=== PATIENT | male | born 1960 | race Caucasian/White ===

== ENCOUNTER 2023-03-01 04:41 | Emergency (ER) | payer MEDICAID, OTHER ==
[~2023-03-01] VITALS: Ht 182.9 cm; Wt 205.0 kg
[2023-03-01 07:33] VITALS: BP 138/90; PULSE 77; RESP 18; TEMP 98.3; O2SAT 98
[2023-03-01] MEDS ORDERED: IBUP-1455 PO (09:12)
[2023-03-01] MEDS ORDERED: ACET500T58 PO (09:12)
== END 2023-03-01 09:12 | disposition home or self-care (01) ==
LOC: ER 04:41
DX: M54.16 Radiculopathy, lumbar region (principal); M79.662 Pain in left lower leg
CPT/HCPCS: 72100; 93971

== ENCOUNTER 2023-03-13 14:32 | Emergency (ER) | payer OTHER ==
[~2023-03-13] VITALS: Ht 182.9 cm; Wt 91.8 kg
[~2023-03-13 14:32] MED LIST: ACET500T58 PO; IBUP-1455 PO
[2023-03-13 14:53] LABS: Basophils # (auto) 0.1 10 ^3/uL (0-0.2); Basophils % (auto) 0.7 % (0.0-2.0); Eosinophils # (auto) 0 10 ^3/uL (0-0.8); Eosinophils % (auto) 0.4 % (0.0-7.0); Hematocrit 47.9 % (41.0-53.0); Hemoglobin 16.9 g/dL (13.5-17.5); Lymphocytes # (auto) 0.6 10 ^3/uL (0.4-5.4); Lymphocytes % (auto) 7.3 % (10.0-50.0); Mean Corpuscular Hemoglobin 33.7 pg (28.0-32.0); Mean Corpuscular Hgb Conc. 35.2 g/dL (32.0-36.0); Mean Corpuscular Volume 95.5 fL (80.0-100.0); Monocytes # (auto) 0.8 10 ^3/uL (0-1.3); Monocytes % (auto) 9.4 % (0.0-12.0); Neutrophils # (auto) 6.8 10 ^3/uL (1.6-8.6); Neutrophils % (auto) 82.2 % (37.0-80.0); Nucleated Red Blood Cells % 0.2 %; Red Blood Cells 5.01 10^6/uL (4.5-5.90); Red Cell Distribution Width 13.1 % (11.8-14.3); White Blood Cell 8.2 10^3/uL (4.4-10.8)
[2023-03-13 15:07] LABS: Alanine Aminotransferase 33 U/L (7-40); Alkaline Phosphatase 90 U/L (46-116); Anion Gap 8 (5-15); Aspartate Aminotransferase 27 U/L (13-40); BUN/Creatinine Ratio 10.7 (10.0-20.0); Blood Urea Nitrogen 11 mg/dL (9-23); Calcium 9.5 mg/dL (8.5-10.1); Carbon Dioxide 27 mmol/L (20-30); Chloride 102 mmol/L (98-107); Glucose 108 mg/dL (74-106); Potassium 3.3 mmol/L (3.5-5.1); Sodium 137 mmol/L (136-145)
[2023-03-13 15:08] LABS: Albumin 4.6 g/dL (3.2-4.8); Bilirubin, Total 1.1 mg/dL (0.2-1.0)
[2023-03-13 15:09] LABS: Total Protein 6.3 g/dL (5.7-8.2)
[2023-03-13 15:28] LABS: Urine Bacteria NONE SEEN /hpf (None Seen); Urine Blood Negative /uL (Negative); Urine Clarity Clear (Clear); Urine Color Yellow (Yellow); Urine Mucus FEW (None Seen); Urine Protein, UAD Negative (Negative); Urine Specific Gravity 1.015 (1.001-1.035); Urine Urobilinogen Normal (Negative); Urine WBC 4 /hpf (0 - 3)
[2023-03-13 16:26] LABS: Rapid Influenza A Negative (Negative); Rapid Influenza B Negative (Negative)
[2023-03-13 16:27] LABS: COVID19 ANTIGEN SOFIA FIA NEGATIVE (NEGATIVE)
[2023-03-13] MEDS ORDERED: AZIT1POW PO (17:02)
[2023-03-13 17:13] VITALS: BP 143/78; PULSE 100; RESP 18; TEMP 99.4; O2SAT 97
== END 2023-03-13 17:15 | disposition home or self-care (01) ==
LOC: ER 14:32
DX: J20.9 Acute bronchitis, unspecified (principal); I10 Essential (primary) hypertension; Z20.822 Contact with and (suspected) exposure to COVID-19
CPT/HCPCS: 36415; 71045; 80053; 81001; 83605; 84484; 85025; 87040; 87426; 87804; 93005

== ENCOUNTER 2025-01-31 12:07 | Inpatient (IN) | payer OTHER ==
[~2025-01-31] VITALS: Ht 182.9 cm; Wt 97.3 kg
[~2025-01-31 12:07] MED LIST changes: +AZIT1POW PO
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
[2025-01-31] MEDS: fentaNYL CITRATE 100 MCG/2 ML VL IV ONE (13:11)
--- NOTE | 2025-01-31 13:16 | DVH ---
EXAM: CT CT AB PEL WO CON-NO ORAL OR IV INDICATION: R HIP PAIN, FALL TECHNIQUE: Volumetric multidetector CT images of the abdomen and pelvis were obtained without contras t. All CT scans at this facility use dose modulation, iterative reconstruction, and/or weight based d osing when appropriate to reduce radiation dose to as low as reasonably achievable. COMPARISON: None FINDINGS: [LOWER CHEST]: The partially visualized lung bases are clear without a pleural effusion. The cardiac size is normal without pericardial effusion. [LIVER]: Normal hepatic size without suspicious focal lesion. [GALLBLADDER AND BILIARY TREE]: No cholelithiasis. [SPLEEN]: Unremarkable. [PANCREAS]: Unremarkable. [ADRENAL GLANDS]: Unremarkable [KIDNEYS]: Moderate left hydronephrosis secondary to left junction stone measuring 1.6 cm [BLADDER]: Unremarkable for the degree distention. [REPRODUCTIVE ORGANS]: Unremarkable. [BOWEL/MESENTERY]: Stomach is normal. No CT evidence of bowel obstruction. [ASCITES]: Absent [LYMPHADENOPATHY]: No pathologically enlarged lymph nodes by CT size criteria [VASCULATURE]: No aneurysmal dilatation. [ABDOMINAL WALL]: Unremarkable. [MUSCULOSKELETAL]: Basicervical right femoral with significant displacement/ angulation. Anterior ap ex angulation of the fracture Multifocal degenerative change of the visualized spine. IMPRESSION: 1. Basicervical right femoral fracture with significant displacement/ angulation. 2. Moderate left hydronephrosis secondary to left ureterovesicular junction stone measuring 1.6 cm.
[2025-01-31 13:17] LABS: Hematocrit 45.5 % (41.0-53.0); Hemoglobin 16.5 g/dL (13.5-17.5); Mean Corpuscular Hemoglobin 34.9 pg (28.0-32.0); Mean Corpuscular Volume 96.0 fL (80.0-100.0); Nucleated Red Blood Cells % 0.2 %
[2025-01-31 13:30] LABS: Alanine Aminotransferase 40 U/L (7-40); Albumin 4.4 g/dL (3.2-4.8); Alkaline Phosphatase 65 U/L (46-116); Anion Gap 9 (5-15); BUN/Creatinine Ratio 11.0 (10.0-20.0); Bilirubin, Total 0.8 mg/dL (0.2-1.0); Blood Urea Nitrogen 14 mg/dL (9-23); Calcium 9.6 mg/dL (8.7-10.4); Carbon Dioxide 30 mmol/L (20-31); Chloride 101 mmol/L (98-107); Glucose 136 mg/dL (74-106); Magnesium 1.8 mg/dL (1.6-2.6); Potassium 3.1 mmol/L (3.5-5.1); Sodium 140 mmol/L (136-145); Total Protein 6.5 g/dL (5.7-8.2)
[2025-01-31] MEDS ORDERED: fentaNYL CITRATE 100 MCG/2 ML VL IV ONE (14:15)
[2025-01-31] MEDS: HYDROmorphone HCL 2 MG/ML VL/or syr IV ONE (14:40)
[2025-01-31] MEDS: TAMSULOSIN HYDROCHLORIDE 0.4 MG CAP PO ONE (15:02)
[2025-01-31 16:44] VITALS: PULSE 72; RESP 18; O2SAT 96
[2025-01-31 18:15] LABS: Urine Amorphous Crystal FEW /hpf (None Seen); Urine Protein, UAD Negative (Negative)
[2025-01-31] MEDS ORDERED: ACETAMINOPHEN 325 MG TAB PO PRN (19:15)
[2025-01-31] MEDS ORDERED: ONDANSETRON HCL 4 MG/2 ML VIAL IV PRN (19:15)
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
[2025-01-31 19:59] LABS: INR 1.03 (0.9-1.15); Partial Thromboplastin Time 25.6 SEC (24.5-34.5); Prothrombin Time 10.9 sec (9.3-11.8)
[2025-01-31] MEDS: HYDROmorphone HCL 2 MG/ML VL/or syr IV PRN (20:02)
[2025-01-31] MEDS: HYDROcodone-ACET 5/325MG TAB PO PRN (20:51)
[2025-01-31] MEDS: POTASSIUM CHL 20 Meq TABLET PO ONE (22:50)
[2025-01-31 23:20] VITALS: BP 154/59; PULSE 68; RESP 18; TEMP 98.8; O2SAT 98
[2025-01-31 23:39] VITALS: BP 154/59; PULSE 68; RESP 18; TEMP 98.8; O2SAT 98
[2025-01-31] MEDS: TEMAZEPAM 15 MG CAP PO PRN (23:46)
[2025-02-01] MEDS ORDERED: HYDR25TA4 PO (00:18)
[2025-02-01] MEDS ORDERED: LOSA-534 PO (00:19)
[2025-02-01 01:00] VITALS: BP 150/95; PULSE 87; RESP 18; TEMP 98.8; O2SAT 97
[2025-02-01 05:00] VITALS: BP 152/88; PULSE 82; RESP 18; TEMP 98.3; O2SAT 96
[2025-02-01 06:36] LABS: Hematocrit 43.2 % (41.0-53.0); Hemoglobin 15.7 g/dL (13.5-17.5); Mean Corpuscular Hemoglobin 34.8 pg (28.0-32.0); Mean Corpuscular Volume 95.7 fL (80.0-100.0); Nucleated Red Blood Cells % 0.0 %
[2025-02-01 06:49] LABS: Chloride 102 mmol/L (98-107); Sodium 141 mmol/L (136-145)
[2025-02-01 06:50] LABS: Anion Gap 11 (5-15); Calcium 9.0 mg/dL (8.7-10.4); Carbon Dioxide 28 mmol/L (20-31)
[2025-02-01 06:53] LABS: Potassium 3.1 mmol/L (3.5-5.1)
[2025-02-01 06:55] LABS: BUN/Creatinine Ratio 13.0 (10.0-20.0); Blood Urea Nitrogen 14 mg/dL (9-23)
[2025-02-01 07:02] LABS: Glucose 111 mg/dL (74-106)
[2025-02-01 09:00] VITALS: BP 137/80; PULSE 75; RESP 18; TEMP 98.2; O2SAT 97
--- NOTE | 2025-02-01 09:54 | DVHINCON2 ---
Date of service: Feb 01, 2025 Referring Physician Hospitalist Reason for Consultation left UPJ stone with moderate hydro History of Present Illness History Source: Patient, RN Notes Exam Limitations: No limitations HPI 64 yo male admitted for right femur fracture after mechanical fall. Incidental findings of left UPJ stone 1.6cm in the UPJ with moderate hydro. No UTI, preserved renal function Home Meds Active Scripts Ibuprofen Micronized (Ibuprofen) 800 Mg Tab, 800 MG PO Q8HP PRN, #30 TAB Prov:MARLO BUCKLEY Karin PAC 03/01/23 Acetaminophen (Acetaminophen) 500 Mg Tab, 500 MG PO Q4HP PRN, #30 TAB Prov:INAMARLO RAO PAC 03/01/23 Reported Medications Losartan Potassium (Losartan Potassium) 50 Mg Tab, 1 TAB PO DAILY, #30 TAB 5 Refills 02/01/25 Hydrochlorothiazide (Hydrochlorothiazide) 25 Mg Tab, 1 TAB PO DAILY, #30 TAB 5 Refills 02/01/25 Past Medical History Patient Family History: Alzheimer's disease G8 FATHER FH: cancer G8 BROTHER FH: dementia G8 FATHER G8 BROTHER FH: stroke G8 MOTHER H&P Exam Vital Signs Vital Signs Date Time Temp Pulse Resp B/P (MAP) Pulse Ox O2 Delivery O2 Flow Rate FiO2 02/01/25 09:00 98.2 75 18 137/80 (99) 97 98.2 02/01/25 08:29 Room Air* 0 21 Labs/Xrays [place] [id number] Ph: [phone] DIAGNOSTIC IMAGING Diagnostic Imaging Report : [id number] Signed PATIENT: DERRICK FLORENTINO ACCT: [id number] UNIT: [id number] : 1960 LOC: ER ROOM / BED: / AGE / SEX: 64 / M ADM STATUS: REG ER SERVICE 1209 ORDERING PHYSICIAN: BENJY MCCLURE DO PROCEDURE(s): ABPL - CT AB PEL WO CON-NO ORAL OR IV REASON: R HIP PAIN, FALL ORDER NUMBER(s): [id number], ACCESSION NUMBER(s): [id number] EXAM: CT CT AB PEL WO CON-NO ORAL OR IV INDICATION: R HIP PAIN, FALL TECHNIQUE: Volumetric multidetector CT images of the abdomen and pelvis were obtained without contrast. All CT scans at this facility use dose modulation, iterative reconstruction, and/or weight based dosing when appropriate to reduce radiation dose to as low as reasonably achievable. COMPARISON: None FINDINGS: [LOWER CHEST]: The partially visualized lung bases are clear without a pleural effusion. The cardiac size is normal without pericardial effusion. [LIVER]: Normal hepatic size without suspicious focal lesion. [GALLBLADDER AND BILIARY TREE]: No cholelithiasis. [SPLEEN]: Unremarkable. [PANCREAS]: Unremarkable. [ADRENAL GLANDS]: Unremarkable [KIDNEYS]: Moderate left hydronephrosis secondary to left junction stone measuring 1.6 cm [BLADDER]: Unremarkable for the degree distention. [REPRODUCTIVE ORGANS]: Unremarkable. [BOWEL/MESENTERY]: Stomach is normal. No CT evidence of bowel obstruction. [ASCITES]: Absent [LYMPHADENOPATHY]: No pathologically enlarged lymph nodes by CT size criteria [VASCULATURE]: No aneurysmal dilatation. [ABDOMINAL WALL]: Unremarkable. [MUSCULOSKELETAL]: Basicervical right femoral with significant displacement/ angulation. Anterior apex angulation of the fracture Multifocal degenerative change of the visualized spine. IMPRESSION: 1. Basicervical right femoral fracture with significant displacement/ angulation. 2. Moderate left hydronephrosis secondary to left ureterovesicular junction stone measuring 1.6 cm. ATED BY: QUINN ROJAS MD DICTATED DATE/TIME: 01/31/251313 SIGNED BY: QUINN ROJAS MD SIGNED DATE/TIME: 01/31/25 1314 CC: Labs Test 02/01/25 06:07 01/31/25 19:30 01/31/25 17:08 01/31/25 13:03 Range/Units White Blood Count 11.6 H 4.4-10.8 10^3/uL Red Blood Count 4.51 4.5-5.90 10^6/uL Hemoglobin 15.7 13.5-17.5 g/dL Hematocrit 43.2 41.0-53.0 % Mean Corpuscular Volume 95.7 80.0-100.0 fL Mean Corpuscular Hemoglobin 34.8 H 28.0-32.0 pg Mean Corpuscular Hemoglobin Concent 36.4 H 32.0-36.0 g/dL Red Cell Distribution Width 13.3 11.8-14.3 % Platelet Count 158 140-450 10^3/uL Mean Platelet Volume 7.6 6.9-10.8 fL Neutrophils (%) (Auto) 80.7 H 37.0-80.0 % Lymphocytes (%) (Auto) 11.2 10.0-50.0 % Monocytes (%) (Auto) 7.2 0.0-12.0 % Eosinophils (%) (Auto) 0.4 0.0-7.0 % Basophils (%) (Auto) 0.5 0.0-2.0 % Neutrophils # (Auto) 9.4 H 1.6-8.6 10 ^3/uL Lymphocytes # (Auto) 1.3 0.4-5.4 10 ^3/uL Monocytes # (Auto) 0.8 0-1.3 10 ^3/uL Eosinophils # (Auto) 0 0-0.8 10 ^3/uL Basophils # (Auto) 0.1 0-0.2 10 ^3/uL Nucleated Red Blood Cells 0.0 % Sodium Level 141 136-145 mmol/L Potassium Level 3.1 L 3.5-5.1 mmol/L Chloride Level 102 98-107 mmol/L Carbon Dioxide Level 28 20-31 mmol/L Anion Gap 11 5-15 Blood Urea Nitrogen 14 9-23 mg/dL Creatinine 1.08 0.700-1.30 mg/dL Glomerular Filtration Rate Calc 76 >90 mL/min BUN/Creatinine Ratio 13.0 10.0-20.0 Serum Glucose 111 H 74-106 mg/dL Calcium Level 9.0 8.7-10.4 mg/dL Prothrombin Time 10.9 9.3-11.8 sec Prothrombin Time INR 1.03 0.9-1.15 Activated Partial Thromboplast Time 25.6 24.5-34.5 SEC Urine Color Light-yellow Yellow Urine Clarity Clear Clear Urine pH 5.5 5.0-9.0 Urine Specific [place] 1.016 1.001-1.035 Urine Protein Negative Negative Urine Ketones Negative Negative Urine Blood Negative Negative /uL Urine Nitrite Negative Negative Urine Bilirubin Negative Negative Urine Urobilinogen Normal Negative mg/dL Urine Leukocyte Esterase 1+ Negative /uL Urine RBC <1 0 - 3 /hpf Urine Microscopic WBC 11 H 0-3 /HPF Urine Squamous Epithelial Cells Few <5 /hpf Urine Amorphous Crystals Few None Seen /hpf Urine Bacteria None seen None Seen /hpf Urine Glucose Normal Normal mg/dL Magnesium Level 1.8 1.6-2.6 mg/dL Total Bilirubin 0.8 0.2-1.0 mg/dL Aspartate Amino Transferase (AST) 36 13-40 U/L Alanine Aminotransferase (ALT) 40 7-40 U/L Alkaline Phosphatase 65 46-116 U/L Troponin I High Sensitivity 4 </=54 ng/L Total Protein 6.5 5.7-8.2 g/dL Albumin 4.4 3.2-4.8 g/dL Plasma/Serum Blood Alcohol < 3.0 <10 mg/dL Assessment/Plan Problem List: (1) Lumbar radiculopathy (2) Acute bronchitis (3) Hydronephrosis, left (4) Left ureteral calculus (5) Closed right hip fracture Plan US for ureteral jetting if not present proceed with PCN Plan discussed with: Patient, Other MAHIN MENJIVAR NP Feb 01, 2025 09:54
--- NOTE | 2025-02-01 10:47 | DVH ---
INDICATION: ureteral jets TECHNIQUE: Multiple real-time sonographic images of the kidneys and bladder were obtained. COMPARISON: None FINDINGS: The right kidney measures 12 cm in length, which is normal in size. There is normal echogen icity of the right kidney. No hydronephrosis. The left kidney measures 14 cm in length, which is normal in size. Moderate left hydronephrosis with multiple stones are noted. No large intraluminal masses are seen in the bladder. IMPRESSION: Moderate left hydronephrosis with multiple stones are noted.
--- NOTE | 2025-02-01 11:32 | DVH ---
right HIP RADIOGRAPH. CLINICAL INDICATION: S/P FALL TECHNIQUE: 3 views of the right hip were obtained. FINDINGS: Displaced right femoral neck fracture. IMPRESSION: 1. Displaced right femoral neck fracture.
--- NOTE | 2025-02-01 12:29 | DVHPN2 ---
Subjective Patient complaining right hip pain Reviewed: Care Plan, H&P, Labs, Medications, Previous Orders Changes from previous H/P or p: No Changes General: Per HPI Objective Vitals Vital Signs Date Time Temp Pulse Resp B/P (MAP) Pulse Ox O2 Delivery O2 Flow Rate FiO2 02/01/25 09:20 75 19 141/75 02/01/25 09:00 98.2 97 98.2 02/01/25 08:29 Room Air* 0 21 Intake/Output Intake and Output 02/01/25 07:00 Intake Total 500 ml Output Total 300 ml Balance 200 ml Intake Oral 400 ml IV Total 100 ml Output Urine Total 300 ml General Appearance: Alert, Oriented X3, Cooperative, moderate distress HEENT: Atraumatic, PERRLA Lungs: Clear to auscultation, Normal air movement Cardiovascular: Normal S1, Normal S2 Abdomen: Normal bowel sounds, Soft, No tenderness Genitourinary: No Apparent Abnormalities Musculoskeletal: Normal sensory function, Normal motor function Neuro: Normal gait, Normal speech Skin: Dry, Intact Psych/Mental Status: Mental status NL, Mood NL Medications Current Medications Medications Dose Ordered Sig/Shanon Route Start Time Stop Time Status Last Admin Dose Admin Hydromorphone HCl 0.5 mg Q4HPRN PRN IV 01/31/25 19:15 02/01/25 08:50 0.5 MG Temazepam 15 mg HSPRN PRN PO 01/31/25 19:15 01/31/25 23:46 15 MG Acetaminophen/ Hydrocodone Bitart 1 tab Q4HP PRN PO 01/31/25 19:15 02/01/25 10:35 1 TAB Ondansetron HCl 4 mg Q4HP PRN IV 01/31/25 19:15 Acetaminophen 650 mg Q6HP PRN PO 01/31/25 19:15 Ceftriaxone Sodium 50 ml @ 100 mls/hr DAILY@09 IV 02/01/25 09:00 02/01/25 09:25 100 MLS/HR Laboratory Results Laboratory Tests 02/01/25 06:07 Chemistry Test 01/31/25 13:03 02/01/25 06:07 Albumin 4.4 g/dL (3.2-4.8) Calcium Level 9.6 mg/dL (8.7-10.4) 9.0 mg/dL (8.7-10.4) Magnesium Level 1.8 mg/dL (1.6-2.6) Total Protein 6.5 g/dL (5.7-8.2) Coagulation Test 01/31/25 19:30 Prothrombin Time 10.9 sec (9.3-11.8) Prothrombin Time INR 1.03 (0.9-1.15) Activated Partial Thromboplast Time 25.6 SEC (24.5-34.5) LFT Test 01/31/25 13:03 Alanine Aminotransferase (ALT) 40 U/L (7-40) Alkaline Phosphatase 65 U/L (46-116) Aspartate Amino Transferase (AST) 36 U/L (13-40) Total Bilirubin 0.8 mg/dL (0.2-1.0) Urinalysis Test 01/31/25 17:08 Urine Color Light-yellow (Yellow) Urine Clarity Clear (Clear) Urine pH 5.5 (5.0-9.0) Urine Specific [place] 1.016 (1.001-1.035) Urine Protein Negative (Negative) Urine Ketones Negative (Negative) Urine Blood Negative /uL (Negative) Urine Nitrite Negative (Negative) Urine Bilirubin Negative (Negative) Urine Urobilinogen Normal mg/dL (Negative) Urine Leukocyte Esterase 1+ /uL (Negative) Urine RBC <1 /hpf (0 - 3) Urine Microscopic WBC 11 /HPF (0-3) H Urine Squamous Epithelial Cells Few /hpf (<5) Urine Amorphous Crystals Few /hpf (None Seen) Urine Bacteria None seen /hpf (None Seen) Urine Glucose Normal mg/dL (Normal) Labs and/or images reviewed: Labs reviewed by me, Image(s) reviewed by me Assessment/Plan Assessment/Plan Impression: -right femoral neck fracture -obstructive uropathy secondary to nephrolithiasis -left hydroureter nephrosis -primary hypertension -hypokalemia Plan: -preop diagnostic testing -ortho consultation -urology consultation -pain management -PUD, DVT prophylaxis -potassium replacement -IV hydration Total time spent with patient discussing and formulating plan of care: 35 minutes. This medical document was created using an electronic medical record system with [employer] system. Although this document has been carefully reviewed, there may still be some phonetic and typographical errors. These areas are purely typographical due to imperfections of the software programs, and do not reflect any compromise in the patient's medical care. Plan discussed with: Patient, Other (RN) My Orders Orders - CHERYLE HINES NP Procedure Category Date Status Time Sod Chl 0.9%/ Kcl PHA 02/01/25 In Process 40meq 12:00 Chest Xray 1 View XY 02/01/25 Logged 11:57 Electrocardigram EKG 02/01/25 Logged 11:57 Date of Service: Feb 01, 2025 Billing Provider: CHERYLE HINES NP Common Visit Codes: [id number] INP/OBS CARE(HIGH) CHERYLE HINES NP Feb 01, 2025 12:29
[2025-02-01] MEDS: SOD CHL 0.9%/ KCL 40MEQ 1,000 ML IV ONE (12:56)
[2025-02-01 13:00] VITALS: BP 135/98; PULSE 74; RESP 18; TEMP 98; O2SAT 93
--- NOTE | 2025-02-01 13:20 | DVH ---
CHEST RADIOGRAPH Indication: pre op Technique: Single frontal view of the chest was obtained Comparison: XY CHEST PORTABLE on DOS: 03/13/23 FINDINGS: Lines and Tubes: None Lungs: No focal consolidation. Pleura: No effusion. No pneumothorax. Cardiomediastinal contours: Unremarkable Bones: No acute osseous abnormality. IMPRESSION: No acute cardiopulmonary disease.
[2025-02-01 17:00] VITALS: BP 143/78; PULSE 86; RESP 18; TEMP 97.9; O2SAT 96
[2025-02-01 21:00] VITALS: BP 154/81; PULSE 82; RESP 18; TEMP 100.2; O2SAT 90
[2025-02-02] VITALS (7 sets, daily range): BP systolic 134–152; BP diastolic 79–94; PULSE 80–95; RESP 18–20; TEMP 98.2–99.9; O2SAT 90–94
[2025-02-02] MEDS: PANTOPRAZOLE 40 MG TAB PO SCH (05:49)
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
[2025-02-02] MEDS: ENOXAPARIN SOD 40 MG/0.4 ML SYRINGE SC SCH (09:09)
[2025-02-02 12:06] LABS: Chloride 103 mmol/L (98-107); Potassium 3.5 mmol/L (3.5-5.1); Sodium 141 mmol/L (136-145)
[2025-02-02 12:07] LABS: Anion Gap 9 (5-15); Carbon Dioxide 29 mmol/L (20-31)
[2025-02-02 12:12] LABS: Glucose 95 mg/dL (74-106)
[2025-02-02 12:13] LABS: BUN/Creatinine Ratio 12.7 (10.0-20.0); Blood Urea Nitrogen 13 mg/dL (9-23); Calcium 8.6 mg/dL (8.7-10.4); Magnesium 1.8 mg/dL (1.6-2.6)
--- NOTE | 2025-02-02 12:58 | DVHPN2 ---
Subjective Patient complaining right hip pain Reviewed: Care Plan, H&P, Labs, Medications, Previous Orders Changes from previous H/P or p: No Changes General: Per HPI Objective Vitals Vital Signs Date Time Temp Pulse Resp B/P (MAP) Pulse Ox O2 Delivery O2 Flow Rate FiO2 02/02/25 12:41 98.7 86 19 148/92 (110) 90 98.7 02/01/25 20:00 Room Air* 0 21 Intake/Output Intake and Output 02/02/25 06:59 Intake Total 3300 ml Output Total 1450 ml Balance 1850 ml Intake Oral 2250 ml IV Total 1050 ml Output Urine Total 1450 ml General Appearance: Alert, Oriented X3, Cooperative, moderate distress HEENT: Atraumatic, PERRLA Lungs: Clear to auscultation, Normal air movement Cardiovascular: Normal S1, Normal S2 Abdomen: Normal bowel sounds, Soft, No tenderness Genitourinary: No Apparent Abnormalities Musculoskeletal: Normal sensory function, Normal motor function Neuro: Normal gait, Normal speech Skin: Dry, Intact Psych/Mental Status: Mental status NL, Mood NL Medications Current Medications Medications Dose Ordered Sig/Shanon Route Start Time Stop Time Status Last Admin Dose Admin Hydromorphone HCl 0.5 mg Q4HPRN PRN IV 01/31/25 19:15 02/02/25 11:43 0.5 MG Temazepam 15 mg HSPRN PRN PO 01/31/25 19:15 02/01/25 22:10 15 MG Acetaminophen/ Hydrocodone Bitart 1 tab Q4HP PRN PO 01/31/25 19:15 02/02/25 08:47 1 TAB Ondansetron HCl 4 mg Q4HP PRN IV 01/31/25 19:15 Acetaminophen 650 mg Q6HP PRN PO 01/31/25 19:15 Ceftriaxone Sodium 50 ml @ 100 mls/hr DAILY@09 IV 02/01/25 09:00 02/02/25 09:02 100 MLS/HR Pantoprazole Sodium 40 mg DAILY@0600 PO 02/02/25 06:00 02/02/25 05:49 40 MG Enoxaparin Sodium 40 mg DAILY SC 02/02/25 10:00 02/02/25 09:09 40 MG Thiamine HCl 100 mg DAILY PO 02/03/25 10:00 UNV Potassium Chloride/Sodium Chloride 1,000 ml @ 75 mls/hr [id number] IV 02/02/25 22:00 UNV Losartan Potassium 50 mg DAILY PO 02/03/25 10:00 UNV Laboratory Results Laboratory Tests 02/01/25 06:07 02/02/25 11:31 Chemistry Test 02/02/25 11:31 Calcium Level 8.6 mg/dL (8.7-10.4) L Magnesium Level 1.8 mg/dL (1.6-2.6) Urinalysis Test 01/31/25 17:08 Urine Color Light-yellow (Yellow) Urine Clarity Clear (Clear) Urine pH 5.5 (5.0-9.0) Urine Specific [place] 1.016 (1.001-1.035) Urine Protein Negative (Negative) Urine Ketones Negative (Negative) Urine Blood Negative /uL (Negative) Urine Nitrite Negative (Negative) Urine Bilirubin Negative (Negative) Urine Urobilinogen Normal mg/dL (Negative) Urine Leukocyte Esterase 1+ /uL (Negative) Urine RBC <1 /hpf (0 - 3) Urine Microscopic WBC 11 /HPF (0-3) H Urine Squamous Epithelial Cells Few /hpf (<5) Urine Amorphous Crystals Few /hpf (None Seen) Urine Bacteria None seen /hpf (None Seen) Urine Glucose Normal mg/dL (Normal) Labs and/or images reviewed: Labs reviewed by me, Image(s) reviewed by me Assessment/Plan Assessment/Plan Impression: -right femoral neck fracture -obstructive uropathy secondary to nephrolithiasis -left hydroureter nephrosis -primary hypertension -hypokalemia Plan: Events: Plans for total right placement tomorrow. -start Flomax -renal function stable. Repeat renal ultrasound to assess hydronephrosis for possible nephrostomy tube placement -ortho consultation -urology consultation -pain management -PUD, DVT prophylaxis Total time spent with patient discussing and formulating plan of care: 35 minutes. This medical document was created using an electronic medical record system with [employer] system. Although this document has been carefully reviewed, there may still be some phonetic and typographical errors. These areas are purely typographical due to imperfections of the software programs, and do not reflect any compromise in the patient's medical care. Plan discussed with: Patient, Other (RN) My Orders Orders - CHERYLE HINES [employer] Procedure Category Date Status Time Apply Z-Guard [facility] 02/01/25 In Process 11:40 Thiamine Tab PHA 02/03/25 Logged 10:00 Tamsulosin PHA 02/02/25 Logged Hydrochloride (Flomax) 13:00 Sod Chl 0.9%/ Kcl PHA 02/02/25 Logged 20meq 22:00 Losartan Tablet PHA 02/03/25 Logged (Cozaar Tablet) 10:00 Hydrochlorothiazide PHA 02/03/25 Logged Tablet (Hydrochlorot 10:00 Date of Service: Feb 02, 2025 Billing Provider: CHERYLE HINES [employer] Common Visit Codes: [id number] INP/OBS CARE(HIGH) CHERYLE HINES NP Feb 02, 2025 12:58
[2025-02-02] MEDS: TAMSULOSIN HYDROCHLORIDE 0.4 MG CAP PO ONE (14:00)
[2025-02-02] MEDS: TAMSULOSIN HYDROCHLORIDE 0.4 MG CAP PO SCH (18:05)
[2025-02-02] MEDS: SOD CHL 0.9%/ KCL 20MEQ 1,000 ML IV SCH (21:05)
[2025-02-03] VITALS (21 sets, daily range): BP systolic 94–152; BP diastolic 56–100; PULSE 56–100; RESP 13–19; TEMP 97.5–99.9; O2SAT 92–96
[2025-02-03] MEDS: VANCOMYCIN HCL 1000 MG VL ONE (07:10)
[2025-02-03] MEDS: TRANEXAMIC ACID 20 ML ONE (07:11)
[2025-02-03] MEDS: CEFEPIME 1GM/50ML 50 ML IV ONE (07:12)
[2025-02-03] MEDS: BUPIVACAINE 0.25% INJ 50ML VIAL ONE (07:12)
--- NOTE | 2025-02-03 09:15 | DVHPN2 ---
Progress Note Date Seen: Feb 02, 2025 Medical Necessity Reason Pt with a Central, PICC or Fol: No Subjective Patient reports: No new complaints, Other (Ready to proceed with surgery) Objective vital signs Vital Sign Date Time Temp Pulse Resp B/P (MAP) Pulse Ox O2 Delivery O2 Flow Rate FiO2 02/03/25 08:44 98.1 83 19 152/92 (112) 92 98.1 02/02/25 20:00 Room Air* 0 21 Total Intake and Output 02/02/25 02/02/25 02/03/25 15:00 23:00 07:00 Intake Total 50 ml 760 ml 600 ml Output Total 900 ml 525 ml Balance 50 ml -140 ml 75 ml medications Current Medications Medications Dose Ordered Sig/Shanon Route Start Time Stop Time Status Last Admin Dose Admin Hydromorphone HCl 0.5 mg Q4HPRN PRN IV 01/31/25 19:15 02/02/25 20:57 0.5 MG Temazepam 15 mg HSPRN PRN PO 01/31/25 19:15 02/01/25 22:10 15 MG Acetaminophen/ Hydrocodone Bitart 1 tab Q4HP PRN PO 01/31/25 19:15 02/03/25 06:22 1 TAB Ondansetron HCl 4 mg Q4HP PRN IV 01/31/25 19:15 Acetaminophen 650 mg Q6HP PRN PO 01/31/25 19:15 Ceftriaxone Sodium 50 ml @ 100 mls/hr DAILY@09 IV 02/01/25 09:00 02/02/25 09:02 100 MLS/HR Pantoprazole Sodium 40 mg DAILY@0600 PO 02/02/25 06:00 02/03/25 06:22 40 MG Enoxaparin Sodium 40 mg DAILY SC 02/02/25 10:00 02/02/25 09:09 40 MG Thiamine HCl 100 mg DAILY PO 02/03/25 10:00 Potassium Chloride/Sodium Chloride 1,000 ml @ 75 mls/hr [id number] IV 02/02/25 22:00 02/02/25 21:05 75 MLS/HR Losartan Potassium 50 mg DAILY PO 02/03/25 10:00 Hydrochlorothiazide 25 mg DAILY PO 02/03/25 10:00 Tamsulosin HCl 0.4 mg QPM PO 02/02/25 18:00 02/02/25 18:05 0.4 MG laboratory and microbiology Laboratory Tests 02/02/25 11:31 02/01/25 06:07 Test 02/02/25 11:31 Range/Units Serum Glucose 95 74-106 mg/dL Problem List/Assessment/Plan Problem List/Assessment/Plan 64 yo M sp fall with displaced right femoral neck fracture 1. Plan for right total hip arthroplasty on 02/03/25 2. NPO/IVF 3. pain control I had a long discussion with the patient regarding the plan, the expected outcome, the risks, benefits, and alternatives of surgery. The risks include, but are not limited to, infection (which may require future surgery and removal of implants) , bleeding (which may require a transfusion), damage to nerves, arteries, veins, tendons, muscles and other adjacent structures. Also discussed the possibilities of dislocation, leg-length discrepancy, intraoperative fractures, implant loosening, heterotopic bone formation, and revision for variety of reasons, and medical complications etc. This was discussed at length and consent has been obtained. Plan discussed with: Patient Dietary Evaluation Review Comments: 1) Initiate MVI @ 1 tb qd 2) Advance to cardiac diet when medically feasible 3) Refer to outpatient RD for weight management 4) Follow-up with orthopedic surgeon and PT 5) Continue to monitor I&O, labs, and skin integrity Expected Outcomes/Goals: 1) labs to improve 2) diet to advance 3) gradual wt loss 4) f/u in 3-5 days SOPHIA COVARRBUIAS MD Feb 03, 2025 09:15
[2025-02-03] MEDS: TETRACAINE 1% INJ 2 ML VIAL IJ ONE (09:20)
[2025-02-03] MEDS ORDERED: fentaNYL CITRATE 100 MCG/2 ML VL ONE (09:23)
[2025-02-03] MEDS ORDERED: MIDAZOLAM HCL 2MG/2ML 2ml VIAL (1mg/ml) ONE ×2 (09:23→09:39)
[2025-02-03] MEDS ORDERED: PROPOFOL 10 MG/ML 20 ML IV ONE (09:31)
--- NOTE | 2025-02-03 09:50 | ECG ---
[facility] Test Date: 2025-02-01 Test Time: 15:43:57 Pat Name: DERRICK FLORENTINO Department: Room: 0286 A Gender: M Library Services Coordinator: MARKUS WILLSON RN : 1960 Requested By: CHERYLE HINES Order Number: [id number] Reading MD: Deniz Byrne Measurements Intervals [place] Rate: 79 P: 33 MI: 142 QRS: 40 QRSD: 88 T: -29 QT: 366 QTc: 420 Interpretive Statements Sinus rhythm Abnormal R-wave progression, early transition Borderline repolarization abnormality Electronically Signed On 02-04-2025 15:29:04 PDT by Deniz Byrne Please click the below link to view image of tracing.
[2025-02-03] MEDS: LOSARTAN POTASSIUM 50 MG TAB PO SCH ×2 (10:00→16:31)
[2025-02-03] MEDS: hydroCHLOROthiazide 25 MG TAB PO SCH ×2 (10:00→16:31)
[2025-02-03] MEDS: THIAMINE HCL 100 MG TAB PO SCH (10:00)
[2025-02-03] MEDS: MORPHINE SULF PF 5 MG/10 ML VIAL ONE (10:10)
[2025-02-03] MEDS: KETOROLAC TROMETH 30 MG/ML 1ML VIAL ONE (10:10)
[2025-02-03] MEDS ORDERED: HYDROmorphone HCL 2 MG/ML VL/or syr IV PRN (11:00)
[2025-02-03] MEDS ORDERED: MIDAZOLAM HCL 2MG/2ML 2ml VIAL (1mg/ml) IV PRN (11:00)
[2025-02-03] MEDS ORDERED: hydrALAZINE HCL 20 MG/ML VL IV PRN (11:00)
[2025-02-03] MEDS ORDERED: diphenhydrAMINE HCL 50 MG/1 ML VL IV PRN (11:00)
--- NOTE | 2025-02-03 11:12 | DVHOP2 ---
Operative Report - 2 Report Details Date: 02/03/25 Preop Diagnosis: Right displaced femoral neck fracture Postop Diagnosis: as above Surgeon: Alfonso Tellez MD Anesthesiologist: Mali GALLEGO Anesthesia: Regional Implant: [employer] Size 58 R3 cup 35 mm screw x 2 Dual mobility 58/40+4 femoral head Size 1 HO polaris stem Consent: The patient was informed of the risks and benefits of the procedure. These include but are not limited to complications of anesthesia, postoperative infection, incomplete relief of symptoms, recurrence of symptoms, damage to bl ood vessels, nerves and tendons, deep venous thrombosis, pulmonary embolism and possible need for repeat surgery in the future. Estimated Blood Loss: 300 cc Name of Procedure Performed Right total hip arthroplasty with computer navigation Procedure Details Procedure Details: FINDINGS: displaced left femoral neck fracture with edematous muscle INDICATION: I had a long discussion with the patient regarding the plan, the expected outcome, the risks, benefits, and alternatives of surgery. The risks include, but are not limited to, infection (which may require future surgery and removal of implants) , bleeding (which may require a transfusion), damage to nerves, arteries, veins, tendons, muscles and other adjacent structures. Also discussed the possibilities of dislocation, leg-length discrepancy, intraoperative fractures, implant loosening, heterotopic bone formation, and revision for variety of reasons, and medical complications etc. This was discussed at length and consent has been obtained. DESCRIPTION OF PROCEDURE: In the preoperative holding area, the consent was reviewed and the appropriate extremity was verified by the patient and marked with my initials. The patient was then transferred to the operating theatre. Appropriate anesthetia was induced. All bony prominences were well padded. A time out was performed verifying the side and site of surgery according to standard protocol. Preoperative antibiotics were given. Tranexamic acid was given. The patient was then placed in the lateral decubitus position and fixed with rigid pelvic fixation. All bony prominences were well padded and an axillary roll was placed. The affected hip area was then prepped and draped in the usual sterile fashion. Using an 11-blade, three stab incisions were made over the iliac crest. Two threaded guide pins were inserted into the crest confirming to be in bone. The pelvic array was attached to the pins and tightened. We made a standard posterolateral incision sharply through the skin and carried our dissection down through subcutaneous tissue to the underlying fascia achieving hemostasis where necessary. We incised the fascia in line with our incision. We identified and protected the sciatic nerve. We took down the external rotators and hip capsule from their insertion into the greater trochanter, tagged them and retracted them posteriorly for further protection of the sciatic nerve. A check point was placed into the greater trochanter and the hip center and leg length length were registered. We then dislocated the femoral head and performed an osteotomy of the femoral neck in accordance with our pre-operative plan. The labrum was excised with a long-handle knife, and we exposed the acetabular rim and cotyloid fossa. We then reamed up to our final size in accordance with the preoperative plan. We copiously irrigated and then impacted the final cup into position. We confirmed the position with the robotic navigation guidance. We placed 2 acetabular dome screws into the posterior-superior quadrant in the usual fashion. We irrigated the cup and impacted the liner, checking to make sure it was well seated. Attention was then turned to the femur. We used a box osteotome followed by a canal finder to gain entry to the canal. Intramedullary contents were suctioned and care was taken to ensure they did not touch the tissues. We sequentially reamed until good cortical contact, then broached up to out final size. We trialed with the appropriate femoral neck and head and reduced the hip. The hip was taken through a full range of motion. The hip soft tissues were examined in extension and external rotation, the anterior capsule and IT band were palpated, and combined anteversion was determined to be 40 degrees. The hip was stable at maximum flexion, at 90 degrees of flexion and 45 degrees of internal rotation and the position of sleep. Leg lengths were restored as shown using the computer navigation, and the trial LTC matched preoperative and intraoperative templating. The hip was then dislocated and trial components removed. We copiously irrigated the wound and impacted the final femoral stem into position. The femoral head was impacted onto a clean and dry trunion and confirmed to be seated. The hip was reduced ensuring to tissues in the acetabular cup. We again brought it through a full functional range of motion and there was no evidence for dislocation, instability, or impingement. The checkpoint was removed. A dilute betadine solution (17.5mL in 500mL saline) was used to wash the joint and left to sit for 3 minutes. This was then irrigated out with copious amounts of pulse lavage. We sprinkled 1g vancomycin powder below the fascia and 1g above the fascia. We copiously irrigated the wound and soft tissues. The short external rotators and capsule were repaired to the greater trochanter through drill holes, and the quadratus was repaired. We palpated the sciatic nerve in continuity without tension. The fascia was closed with vicryl and a barbed suture. We closed over the fascia with vicryl suture and re-approximated the skin with maria. A sterile dressing was placed. We returned the patient to the supine position. We verified all lower extremity compartments were soft and compressible and that we had intact distal pulses and checked our leg length sikhism. The patient was then transferred to the recovery room in stable condition. Specimen: right femoral head Condition Good Disposition Still a Patient ALFONSO TELLEZ MD Feb 03, 2025 11:12
--- NOTE | 2025-02-03 12:13 | DVH ---
EXAM: XY PELVIS AP INDICATION: sp Right MIGUEL ANGEL TECHNIQUE: 1 views of the pelvis COMPARISON: XY R HIP COMPLETE XRAY on DOS: 02/01/25 FINDINGS/IMPRESSION: No radiographic evidence of an acute osseous abnormality. There is no acute fracture, osseous malalig nment, or aggressive focal osseous lesion. Right total hip arthroplasty. Mild degenerative change of the left hip
--- NOTE | 2025-02-03 14:22 | DVHPN2 ---
Subjective Patient complaining right hip pain Reviewed: Care Plan, H&P, Labs, Medications, Previous Orders Changes from previous H/P or p: No Changes General: Per HPI Objective Vitals Vital Signs Date Time Temp Pulse Resp B/P (MAP) Pulse Ox O2 Delivery O2 Flow Rate FiO2 02/03/25 12:50 60 14 93 02/03/25 12:37 97.5 131/80 (97) 97.5 02/03/25 11:05 Nasal Cannula 2.0 94 Intake/Output Intake and Output 02/03/25 07:00 Intake Total 1410 ml Output Total 1425 ml Balance -15 ml Intake Oral 1360 ml IV Total 50 ml Output Urine Total 1425 ml General Appearance: Alert, Oriented X3, Cooperative, moderate distress HEENT: Atraumatic, PERRLA Lungs: Clear to auscultation, Normal air movement Cardiovascular: Normal S1, Normal S2 Abdomen: Normal bowel sounds, Soft, No tenderness Genitourinary: No Apparent Abnormalities Musculoskeletal: Normal sensory function, Normal motor function Neuro: Normal gait, Normal speech Skin: Dry, Intact Psych/Mental Status: Mental status NL, Mood NL Medications Current Medications Medications Dose Ordered Sig/Shanon Route Start Time Stop Time Status Last Admin Dose Admin Hydromorphone HCl 0.5 mg Q4HPRN PRN IV 01/31/25 19:15 02/02/25 20:57 0.5 MG Temazepam 15 mg HSPRN PRN PO 01/31/25 19:15 02/01/25 22:10 15 MG Acetaminophen/ Hydrocodone Bitart 1 tab Q4HP PRN PO 01/31/25 19:15 02/03/25 06:22 1 TAB Acetaminophen 650 mg Q6HP PRN PO 01/31/25 19:15 Pantoprazole Sodium 40 mg DAILY@0600 PO 02/02/25 06:00 02/03/25 06:22 40 MG Enoxaparin Sodium 40 mg DAILY SC 02/02/25 10:00 02/02/25 09:09 40 MG Thiamine HCl 100 mg DAILY PO 02/03/25 10:00 Potassium Chloride/Sodium Chloride 1,000 ml @ 75 mls/hr [id number] IV 02/02/25 22:00 02/02/25 21:05 75 MLS/HR Losartan Potassium 50 mg DAILY PO 02/03/25 10:00 Hydrochlorothiazide 25 mg DAILY PO 02/03/25 10:00 Tamsulosin HCl 0.4 mg QPM PO 02/02/25 18:00 02/02/25 18:05 0.4 MG Diphenhydramine HCl 25 mg Q4HP PRN IV 02/03/25 11:00 Ondansetron HCl 4 mg Q4HP PRN IV 02/03/25 11:00 Cefazolin Sodium 50 ml @ 100 mls/hr Q8HR IV 02/03/25 14:00 02/04/25 06:29 Cefepime HCl 50 ml @ 12.5 mls/hr DAILY IV 02/04/25 10:00 Laboratory Results Laboratory Tests 02/01/25 06:07 02/02/25 11:31 Urinalysis Test 01/31/25 17:08 Urine Color Light-yellow (Yellow) Urine Clarity Clear (Clear) Urine pH 5.5 (5.0-9.0) Urine Specific [place] 1.016 (1.001-1.035) Urine Protein Negative (Negative) Urine Ketones Negative (Negative) Urine Blood Negative /uL (Negative) Urine Nitrite Negative (Negative) Urine Bilirubin Negative (Negative) Urine Urobilinogen Normal mg/dL (Negative) Urine Leukocyte Esterase 1+ /uL (Negative) Urine RBC <1 /hpf (0 - 3) Urine Microscopic WBC 11 /HPF (0-3) H Urine Squamous Epithelial Cells Few /hpf (<5) Urine Amorphous Crystals Few /hpf (None Seen) Urine Bacteria None seen /hpf (None Seen) Urine Glucose Normal mg/dL (Normal) Labs and/or images reviewed: Labs reviewed by me, Image(s) reviewed by me Assessment/Plan Assessment/Plan Impression: -right femoral neck fracture -obstructive uropathy secondary to nephrolithiasis -left hydroureter nephrosis -primary hypertension -hypokalemia Plan: Events: Status post total right hip replacement -continue Flomax -renal function stable. -restart antihypertensives -repeat renal ultrasound -urology consultation -pain management -PUD, DVT prophylaxis -repeat labs in a.m. Physical therapy Total time spent with patient discussing and formulating plan of care: 35 minutes. This medical document was created using an electronic medical record system with [employer] dictation system. Although this document has been carefully reviewed, there may still be some phonetic and typographical errors. These areas are purely typographical due to imperfections of the software programs, and do not reflect any compromise in the patient's medical care. Plan discussed with: Patient, Other (RN) My Orders Orders - CHERYLE HINES NP Procedure Category Date Status Time Bupivacaine Hcl PHA 02/03/25 In Process (Bupivacaine Hcl) 07:12 Basic Metabolic Panel LAB 02/04/25 Verified 04:00 Kidney US 02/03/25 Logged 14:07 Complete Blood Count LAB 02/04/25 Verified 04:00 Date of Service: Feb 03, 2025 Billing Provider: CHERYLE HINES NP Common Visit Codes: [id number] INP/OBS CARE(HIGH) CHERYLE HINES NP Feb 03, 2025 14:22
--- NOTE | 2025-02-03 15:22 | DVH ---
INDICATION: assess hydronephrosis TECHNIQUE: Multiple real-time sonographic images of the kidneys and bladder were obtained. COMPARISON: US KIDNEY on DOS: 02/01/25 FINDINGS: RIGHT kidney measures 10.69 cm in length. No hydronephrosis. LEFT kidney measures 11.96 cm in length. Left-sided hydronephrosis. ( renal pelvis measures 2.1 cm) There is a 0.62 x 0.26 x 2.48 cm calculus in the left kidney. No large intraluminal masses are seen in the bladder. Randall catheter in place Randall catheter in the bladder IMPRESSION: 1. 10.7 cm long right kidney. 12.0 cm long left kidney. 2. Left-sided hydronephrosis with nephrolithiasis 3. Randall catheter located in the bladder.
[2025-02-03] MEDS: ceFAZolin 1GM/50ML 50 ML IV SCH (16:19)
[2025-02-03] MEDS: LACTATED RINGER'S 1,000 ML IV SCH (16:20)
[2025-02-04] VITALS (15 sets, daily range): BP systolic 97–124; BP diastolic 50–78; PULSE 61–81; RESP 13–19; TEMP 96–98.7; O2SAT 91–96
[2025-02-04 06:25] LABS: Nucleated Red Blood Cells % 0.1 %
[2025-02-04 06:28] LABS: Hematocrit 35.5 % (41.0-53.0); Hemoglobin 12.6 g/dL (13.5-17.5); Mean Corpuscular Hemoglobin 34.4 pg (28.0-32.0); Mean Corpuscular Volume 96.6 fL (80.0-100.0)
[2025-02-04 06:47] LABS: Chloride 103 mmol/L (98-107); Potassium 3.7 mmol/L (3.5-5.1); Sodium 140 mmol/L (136-145)
[2025-02-04 06:48] LABS: Anion Gap 11 (5-15); Carbon Dioxide 26 mmol/L (20-31)
[2025-02-04 06:50] LABS: Calcium 8.7 mg/dL (8.7-10.4)
[2025-02-04 06:53] LABS: BUN/Creatinine Ratio 23.7 (10.0-20.0); Blood Urea Nitrogen 23 mg/dL (9-23)
[2025-02-04 07:06] LABS: Glucose 118 mg/dL (74-106)
[2025-02-04] MEDS: CEFEPIME 1GM/50ML 50 ML IV SCH (10:04)
[2025-02-04] MEDS: ONDANSETRON HCL 4 MG/2 ML VIAL IV PRN (13:59)
[2025-02-04] MEDS ORDERED: HYDR-4798 PO (14:05)
[2025-02-04] MEDS ORDERED: SENN-62 PO (14:05)
[2025-02-04] MEDS ORDERED: AMOX500T86 PO (14:05)
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
== END 2025-02-04 20:36 | disposition home or self-care (01) | DRG 323 ==
LOC: ER 12:07 → EDBD 12:07 → OVERFLOW 19:13 → WEST WING 23:20
PROVIDERS: ADMIT Nurse Practitioner Acute Care; ATTEND Nurse Practitioner Acute Care
PROC: 8E0YXBZ Computer Assisted Procedure of Lower Extremity (ICD-10-PCS; 2025-02-03)
PROC: 8E0Y0CZ Robotic Assisted Procedure of Lower Extremity, Open Approach (ICD-10-PCS; 2025-02-03)
PROC: 0SR902Z Replacement of Right Hip Joint with Metal on Polyethylene Synthetic Substitute, Open Approach (ICD-10-PCS; principal; 2025-02-03 09:18)
DX: S72.001A Fracture of unspecified part of neck of right femur, initial encounter for closed fracture (principal); N13.2 Hydronephrosis with renal and ureteral calculous obstruction; I10 Essential (primary) hypertension; E87.6 Hypokalemia; J20.9 Acute bronchitis, unspecified; M54.16 Radiculopathy, lumbar region; Z96.651 Presence of right artificial knee joint; V18.4XXA Pedal cycle driver injured in noncollision transport accident in traffic accident, initial encounter; Y93.55 Activity, bike riding; Z79.899 Other long term (current) drug therapy; Z82.3 Family history of stroke; Z82.0 Family history of epilepsy and other diseases of the nervous system; Y92.89 Other specified places as the place of occurrence of the external cause; Y99.8 Other external cause status
CPT/HCPCS: 36415; 71045; 72170; 73502; 74176; 76775; 80048; 80053; 80307; 80320; 81001; 83735; 84484; 85025; 85610; 85730; 86850; 86900; 86901; 93005; 96374; 97110; 97116; 97163; G0378; J1100; J1885; J2250; J2405; J2704; J3490